=== PATIENT | female | born 1980 | race African-American/Black ===

== ENCOUNTER 2020-04-08 14:08 | Emergency (ER) | payer MEDICAID ==
[~2020-04-08] VITALS: Ht 172.7 cm; Wt 81.6 kg
[2020-04-08 14:18] VITALS: BP 151/65
--- NOTE | 2020-04-08 14:22 | NUR ---
39 Y/O F C/C RASH BILATERAL PALM OF HANDS SINCE THURSDAY. PER PT WENT TO A [facility] AND TOUCHED METAL CHAIR WHICH CAUSED HER AN IMMEDIATE REACTION OF BURNING, TINGLING AND RASH. PAIN 05/28. TAKEN BENADRYL WITH NO RELIEF. PT NKA. NO HX. NO RX. NO NVD. PLACED IN CHAIR C. NO RESP DISTRESS.
[2020-04-08] MEDS ORDERED: predniSONE 20 MG TAB PO ONE (14:30)
[2020-04-08 15:04] VITALS: BP 140/60
--- NOTE | 2020-04-08 15:04 | NUR ---
Patient discharged with v/s stable. Written and verbal after care instructions given and explained. Patient alert, oriented and verbalized understanding of instructions. Ambulatory with steady gait. All questions addressed prior to discharge. ID band removed. Patient advised to follow up with PMD. Rx of Claritin and Prednisone 20mg, Ibuprofen 600mg given. Patient educated on indication of medication including possible reaction and side effects. Opportunity to ask questions provided and answered.
== END 2020-04-08 15:04 | disposition home or self-care (01) ==
LOC: MED 14:08
DX: L25.3 Unspecified contact dermatitis due to other chemical products (principal)
CPT/HCPCS: 99283; J7512

== ENCOUNTER 2020-04-19 18:12 | Emergency (ER) | payer MEDICAID ==
[~2020-04-19] VITALS: Ht 172.7 cm; Wt 95.3 kg
[2020-04-19 18:20] VITALS: BP 139/83
--- NOTE | 2020-04-19 18:20 | NUR ---
PT AMBULATED TO [facility]
--- NOTE | 2020-04-19 18:25 | NUR ---
39 Y/O FEMALE FROM HOME C/O BILATERAL HAND IRRITATION X 2 WKS. PT STATES SHE WAS SEEN AT [facility] 2 WKS AGO FOR SAME ISSUE AND GIVEN STEROIDS. 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 NOTICABLE PEELING OF SKIN TO BILATERAL HANDS. STATES ITCHING BUT NO PAIN. NO SWELLING/DISCOLORATION. AWAKE AND ALERT. VSS MEDHX: DENIES
[2020-04-19 18:54] VITALS: BP 139/83
--- NOTE | 2020-04-19 18:54 | NUR ---
Patient discharged with v/s stable. Written and verbal after care instructions given and explained. Patient verbalized understanding. Ambulatory with steady gait. All questions addressed prior to discharge. Advised to follow up with PMD.
== END 2020-04-19 18:54 | disposition home or self-care (01) ==
LOC: MED 18:12
DX: L25.9 Unspecified contact dermatitis, unspecified cause (principal)
CPT/HCPCS: 99281

== ENCOUNTER 2021-08-07 20:15 | Emergency (ER) | payer MEDICAID ==
--- NOTE | 2021-08-08 02:05 | NUR ---
Dr. Lang examining patient.
[2021-08-08] MEDS ORDERED: IBUPROFEN 600 MG TAB PO ONE (02:10)
[2021-08-08] MEDS ORDERED: LIDOCAINE/PRILOCAINE 2.5% 5 GM TUBE TP ONE (02:15)
[2021-08-08] MEDS ORDERED: CEPH-588 PO (02:52)
[2021-08-08] MEDS ORDERED: ACET-8386 PO (02:52)
--- NOTE | 2021-08-08 03:12 | NUR ---
Patient discharged with v/s stable. Written and verbal after care instructions given and explained. Patient alert, oriented and verbalized understanding of instructions. Ambulatory with steady gait. All questions addressed prior to discharge. ID band removed. Patient advised to follow up with PMD. Rx of KEFLEX AND NORCO given. Patient educated on indication of medication including possible reaction and side effects. Opportunity to ask questions provided and answered.
[2021-08-08] MEDS ORDERED: BACITRACIN OINT 500 UNITS/GM PKT TP ONE ×2 (03:34)
== END 2021-08-08 03:12 | disposition home or self-care (01) ==
LOC: MED 20:30
DX: L03.032 Cellulitis of left toe (principal); Z79.899 Other long term (current) drug therapy
CPT/HCPCS: 99284

== ENCOUNTER 2022-05-26 18:43 | Emergency (ER) | payer MEDICAID ==
[~2022-05-26] VITALS: Ht 172.7 cm; Wt 92.5 kg
[~2022-05-26 18:43] MED LIST: ACET-8386 PO; CEPH-588 PO
[2022-05-26 18:52] VITALS: BP 154/72
--- NOTE | 2022-05-26 18:58 | NUR ---
PT AMBULATED TO BATHROOM WITH STEADY GAIT
[2022-05-26] MEDS ORDERED: DICYCLOMINE HCL LIQUID 20 MG, ALUMINUM HYD/MAG/SIMETHICONE 30 ML, LIDOCAINE VISCOUS 2% ... PO ONE ×3 (19:15)
[2022-05-26] MEDS ORDERED: IBUP-2213 PO (19:30)
[2022-05-26] MEDS ORDERED: OMEP40EC24 PO (19:30)
[2022-05-26] MEDS ORDERED: DICYCLOMINE HCL LIQUID 10 MG/5 ML UDC ONE (19:33)
[2022-05-26] MEDS ORDERED: ALUMINUM HYD/MAG/SIMETHICONE 30 ML UDC ONE (19:33)
[2022-05-26] MEDS ORDERED: KETOROLAC 60 MG/2 ML VIAL IM ONE (20:10)
--- NOTE | 2022-05-26 20:40 | NUR ---
Patient discharged with v/s stable. Written and verbal after care instructions given and explained. Patient alert, oriented and verbalized understanding of instructions. Ambulatory with steady gait. All questions addressed prior to discharge. ID band removed. Patient advised to follow up with PMD. Rx of IBUPROFEN & PRILOSEC given. Patient educated on indication of medication including possible reaction and side effects. Opportunity to ask questions provided and answered.
== END 2022-05-26 20:40 | disposition home or self-care (01) ==
LOC: MED 18:43
DX: R10.13 Epigastric pain (principal); R06.02 Shortness of breath; Z98.890 Other specified postprocedural states
CPT/HCPCS: 81002; 96372; 99283; J1885

== ENCOUNTER 2023-08-30 17:17 | Emergency (ER) | payer MEDICAID ==
[~2023-08-30] VITALS: Ht 172.7 cm; Wt 91.6 kg
[~2023-08-30 17:17] MED LIST changes: -ACET-8386 PO; +ACET-8905 PO; +IBUP-2213 PO; +OMEP40EC24 PO
[2023-08-30 17:40] VITALS: BP 155/93; PULSE 82; RESP 24; TEMP 98.7
[2023-08-30 18:59] LABS: BASOPHILS # (AUTO) 0.1 K/uL (0.00-0.22); EOSINOPHILS # (AUTO) 0.2 K/uL (0-0.4); EOSINOPHILS % (AUTO) 1.6 % (0.0-4.0); HEMATOCRIT 35.4 % (36-48); HEMOGLOBIN 11.2 g/dL (12.0-16.0); LYMPHOCYTES # (AUTO) 3.9 K/uL (2.5-16.5); LYMPHOCYTES % (AUTO) 30.4 % (20.5-51.1); MEAN CORPUSCULAR HEMOGLOBIN 25 pg (27-31); MEAN CORPUSCULAR HGB CONC 32 g/dL (33-37); MEAN CORPUSCULAR VOLUME 77.5 fL (80-94); MONOCYTES # (AUTO) 0.7 K/uL (0.8-1.0); MONOCYTES % (AUTO) 5.7 % (1.7-9.3); NEUTROPHILS # (AUTO) 7.9 K/uL (1.8-7.7); NEUTROPHILS % (AUTO) 61.3 % (42.2-75.2); PLATELET COUNT (AUTO) 260 K/uL (140-450); RED BLOOD CELL COUNT(AUTO) 4.56 MIL/uL (4.20-5.40); RED CELL DISTRIBUTION WIDTH 17.9 % (11.6-13.7); WHITE BLOOD COUNT (AUTO) 12.8 K/uL (4.8-10.8)
[2023-08-30 19:19] LABS: ALANINE AMINOTRANSFERASE 17 U/L (12-78); ALBUMIN 3.8 g/dL (3.4-5.0); ALKALINE PHOSPHATASE 47 U/L (50-136); ANION GAP 9.7 (8-16); ASPARTATE AMINOTRANSFERASE 12 U/L (15-37); CALCIUM 8.9 mg/dL (8.5-10.1); CARBON DIOXIDE 29.7 mmol/L (21-32); CHLORIDE 105 mmol/L (98-107); GFR ARICAN-AMERICAN 77 mL/min (>90); GFR NON ARICAN-AMERICAN 64 mL/min (>90); GLUCOSE 81 mg/dL (74-106); POTASSIUM 3.4 mmol/L (3.5-5.1); SODIUM SERUM 141 mmol/L (136-145); TOTAL BILIRUBIN 0.3 mg/dL (0.0-1.0); UREA NITROGEN, BLOOD 9 mg/dL (7-18)
[2023-08-30] MEDS ORDERED: IBUP-2213 PO (19:39)
[2023-08-30 19:45] VITALS: TEMP 97.9
[2023-08-30 19:53] VITALS: BP 137/80; PULSE 90; RESP 19; O2SAT 98
== END 2023-08-30 19:51 | disposition home or self-care (01) ==
LOC: MED 17:17
DX: R07.9 Chest pain, unspecified (principal); Z79.899 Other long term (current) drug therapy
CPT/HCPCS: 36415; 71045; 73130; 80053; 81025; 84484; 85025; 93005; 99285; Q0092